=== PATIENT | female | born 1980 | race Caucasian/White ===

== ENCOUNTER 2017-05-14 07:07 | Day surgery (SDC) | payer OTHER, MEDICAID ==
[~2017-05-14] VITALS: Ht 164.3 cm; Wt 83.3 kg
[~2017-05-14 07:07] MED LIST: AMLO10TA2 PO; EPINEPHRINE 1 MG/ML, 1ML ONE; IBUP200T49 PO; LIDOCAINE 1%, 20ML ONE; PARO20TA98 PO; ROPIvacaine/PF 0.5%, 30 ML ONE
[2017-05-14] MEDS ORDERED: MIDAZOLAM 1 MG/ML, 2ML ONE (07:39)
[2017-05-14] MEDS ORDERED: FENTANYL PF 100 MCG/2ML ONE ×3 (07:39→11:01)
[2017-05-14] MEDS ORDERED: KETAMINE 10 MG/ML, 20ML ONE (07:39)
[2017-05-14] MEDS ORDERED: LACTATED RINGERS 1,000 ML IV SCH (07:47)
[2017-05-14 07:50] VITALS: BP 129/84
[2017-05-14] MEDS ORDERED: LIDOCAINE-MPF 1%, 2ML ONE (07:54)
[2017-05-14] MEDS ORDERED: LIDOCAINE 1%, 2ML SQ PRN (08:00)
[2017-05-14] MEDS ORDERED: PROMETHAZINE 12.5 MG SUPP PR PRN (10:00)
[2017-05-14] MEDS ORDERED: HYDROmorphone 1 MG/ML, 1ML IV PRN (10:00)
[2017-05-14] MEDS ORDERED: DIAZEPAM 5 MG/ML, 2ML IVPush PRN (10:00)
[2017-05-14] MEDS ORDERED: OXYcodone 5 MG/5 ML ORAL.SOL UDC PO PRN (10:00)
[2017-05-14] MEDS ORDERED: ACETAMINOPHEN 325 MG TABLET PO PRN (10:00)
[2017-05-14] MEDS ORDERED: MEPERIDINE/PF 25MG/0.5ML IVPush PRN (10:00)
[2017-05-14] MEDS ORDERED: ACETAMINOPHEN 650 MG/20.3 ML UDC ONE (10:38)
[2017-05-14] MEDS ORDERED: OXYcodone 5 MG/5 ML ORAL.SOL UDC ONE (10:39)
[2017-05-14] MEDS: FENTANYL PF 100 MCG/2ML IV PRN ×3 (10:40→11:00)
[2017-05-14] MEDS ORDERED: DIPHENHYDRAMINE 50 MG/ML, 1ML ONE (12:23)
[2017-05-14] MEDS ORDERED: DIPHENHYDRAMINE 50 MG/ML, 1ML IVPush ONE (12:30)
[2017-05-14] MEDS ORDERED: KETOROLAC 30 MG/1 ML ONE (15:21)
[2017-05-14] MEDS ORDERED: PROPOFOL 10 MG/ML, 20ML ONE (15:21)
[2017-05-14] MEDS ORDERED: ONDANSETRON 2MG/ML, 2ML ONE (15:21)
[2017-05-14] MEDS ORDERED: CEFAZOLIN 1,000 MG ONE (15:21)
[2017-05-14] MEDS ORDERED: DEXAMETHASONE 4 MG/ML, 1ML ONE (15:21)
== END 2017-05-14 13:23 ==
LOC: OUT 07:07
PROVIDERS: ATTEND Orthopaedic Surgery
DX: S83.281A Other tear of lateral meniscus, current injury, right knee, initial encounter (principal); S83.231A Complex tear of medial meniscus, current injury, right knee, initial encounter; I10 Essential (primary) hypertension; F32.9 Major depressive disorder, single episode, unspecified; Z88.8 Allergy status to other drugs, medicaments and biological substances; Z88.1 Allergy status to other antibiotic agents; Z91.013 Allergy to seafood; X58.XXXA Exposure to other specified factors, initial encounter; Y93.89 Activity, other specified; Y92.89 Other specified places as the place of occurrence of the external cause; Y99.8 Other external cause status; M94.261 Chondromalacia, right knee; M65.861 Other synovitis and tenosynovitis, right lower leg
CPT/HCPCS: 29881; 29882; 81025; J0171; J0690; J1100; J1200; J1885; J2250; J2405; J2704; J2795; J3010; J3490; J7120

== ENCOUNTER 2020-08-31 19:06 | Emergency (ER) | payer MEDICAID, OTHER ==
[~2020-08-31] VITALS: Ht 162.6 cm; Wt 71.0 kg
[~2020-08-31 19:06] MED LIST changes: +AMLO-211 PO; -AMLO10TA2 PO; -EPINEPHRINE 1 MG/ML, 1ML ONE; -LIDOCAINE 1%, 20ML ONE; -ROPIvacaine/PF 0.5%, 30 ML ONE
[2020-08-31] MEDS ORDERED: SODIUM CHLORIDE FLUSH 10ML SYR IVF ONE (19:30)
[2020-08-31] MEDS ORDERED: ONDANSETRON 2MG/ML, 2ML IVPush ONE (19:30)
[2020-08-31 20:26] LABS: BASOPHILS % (AUTO) 0 % (0-1); EOSINOPHILS % (AUTO) 0 % (1-7); LYMPHOCYTES % (AUTO) 5 % (22-44); MEAN CORPUSCULAR HEMOGLOBIN 29.9 pg (27.0-34.8); MEAN CORPUSCULAR HGB CONC 33.9 g/dL (32.4-35.8); MEAN PLATELET VOLUME 8.2 fL (7.4-10.4); MONOCYTES % (AUTO) 5 % (2-9); NEUTROPHILS % (AUTO) 90 % (42-75); PLATELET COUNT 426 x10^3/uL (130-400); RED BLOOD COUNT 4.89 x10^6/uL (3.82-5.3); RED CELL DISTRIBUTION WIDTH 14.5 % (9.6-15.2)
[2020-08-31 20:38] LABS: ALBUMIN 4.6 g/dL (3.4-5.0); ANION GAP 8 mmol/L (5-15); CHLORIDE 112 mmol/L (98-107)
[2020-08-31 20:43] LABS: ALANINE AMINOTRANSFERASE 43 U/L (12-78); ALKALINE PHOSPHATASE 89 U/L (45-117); BILIRUBIN,TOTAL 0.8 mg/dL (0.2-1.0); CREATININE 0.71 mg/dL (0.55-1.02); TOTAL PROTEIN 8.3 g/dL (6.4-8.2)
[2020-08-31] MEDS ORDERED: ONDANSETRON 2MG/ML, 2ML ONE (21:33)
--- NOTE | 2020-08-31 21:35 | NUR ---
ASSUMED CARE OF PATIENT. PATIENT C/O NAUSEA X1 DAYS. VS STABLE. NO ACUTE DISTRESS NOTED. WILL CONTINUE TO MONITOR.
[2020-08-31 21:51] LABS: MICROSCOPIC INDICATED
--- NOTE | 2020-08-31 21:58 | NUR ---
ANNABELLE ROBERSON IN ROOM
--- NOTE | 2020-08-31 22:15 | NUR ---
PT RESTING IN ROOM. FAMILY AT BEDSIDE. CALL LIGHT IN PLACE. WILL CONTINUE TO MONITOR.
--- NOTE | 2020-08-31 22:34 | NUR ---
PT WENT TO RADIOLOGY
[2020-08-31] MEDS ORDERED: LORazepam 1MG TABLET ONE (22:46)
[2020-08-31] MEDS ORDERED: LORazepam 1MG TABLET PO ONE (23:00)
[2020-09-01] MEDS ORDERED: SODIUM CHLORIDE 0.9% 1,000ML IVBOLUS ONE
--- NOTE | 2020-09-01 00:16 | NUR ---
PT RESTING IN ROOM. FAMILY AT BEDSIDE. CALL LIGHT IN PLACE. WILL CONTINUE TO MONITOR.
--- NOTE | 2020-09-01 00:56 | NUR ---
PT IN CT
[2020-09-01] MEDS ORDERED: OMNIPAQUE 350 MG/ML, 100ML BOTTLE ONE (01:05)
--- NOTE | 2020-09-01 02:07 | NUR ---
REPORT GIVEN TO FERNANDO ROLON
--- NOTE | 2020-09-01 02:08 | NUR ---
report from claritza monroy
--- NOTE | 2020-09-01 02:27 | NUR ---
RECEIVED REPORT FROM GONZALES KING.
[2020-09-01 02:40] VITALS: BP 178/95
--- NOTE | 2020-09-01 02:47 | NUR ---
Patient given discharge instructions and they have confirmed that they understand the instructions. Patient ambulatory with steady gait. NAD, all questions answered appropriately, denies additional needs at this time. No personal belongings left in room after discharge.
== END 2020-09-01 02:48 | disposition home or self-care (01) ==
LOC: ED 09-01 02:42
DX: M62.830 Muscle spasm of back (principal); R11.2 Nausea with vomiting, unspecified; D72.829 Elevated white blood cell count, unspecified; R10.11 Right upper quadrant pain; R10.13 Epigastric pain; R10.12 Left upper quadrant pain; I10 Essential (primary) hypertension
CPT/HCPCS: 36415; 74021; 74177; 80053; 81001; 81025; 83690; 85025; 87086; 96361; 96374; 99285; J2405; J7030; Q9967